=== PATIENT | female | born 1980 | race Caucasian/White ===

== ENCOUNTER 2023-12-19 04:08 | Day surgery (SDC) | payer BC ==
[2023-12-13 12:39] VITALS: BMI 32.7
[2023-12-19] MEDS ORDERED: ONDANSETRON 4 MG/2 ML VIAL IVPUSH PRN (11:23)
[2023-12-19] MEDS ORDERED: LIDOCAINE HCL 1%, 10 MG/ML (20ML VIAL) ONE ×2 (11:29→14:22)
[2023-12-19] MEDS ORDERED: ISOSULFAN BLUE 50 MG/5 ML VIAL SQ ONE (11:30)
[2023-12-19] MEDS ORDERED: LACTATED RINGERS SOLUTION 1,000 ML IV SCH (11:30)
[2023-12-19] MEDS ORDERED: ceFAZolin SODIUM 1 GM VIAL ONE (12:08)
[2023-12-19] MEDS ORDERED: ONDANSETRON 4 MG/2 ML VIAL ONE (12:08)
[2023-12-19] MEDS ORDERED: MIDAZOLAM HCL 2 MG/2 ML SINGLE DOSE VIAL ONE (12:08)
[2023-12-19] MEDS ORDERED: FENTANYL CITRATE/PF 50 MCG/ML VIAL ONE ×4 (12:08→13:27)
[2023-12-19] MEDS ORDERED: PROPOFOL 20 ML ONE (12:08)
[2023-12-19] MEDS ORDERED: ROCURONIUM BROMIDE 50 MG/5 ML SYRINGE ONE (12:08)
[2023-12-19] MEDS ORDERED: DEXAMETHASONE SOD PHOSPHATE 4 MG/1 ML VIAL ONE (12:08)
[2023-12-19] MEDS ORDERED: ACETAMINOPHEN INJECTION 100 ML IVPB ONE (12:45)
[2023-12-19] MEDS: ceFAZolin SODIUM 1 GM VIAL IVPB ONE (12:57)
[2023-12-19] MEDS ORDERED: HYDROmorphone HCl 2 MG/ML VIAL ONE (12:59)
[2023-12-19] MEDS: LIDOCAINE HCL 1%, 10 MG/ML (20ML VIAL) INF ONE (13:17)
[2023-12-19] MEDS: HEPARIN NA (PORCINE) 5,000 UNITS/ML 1ML VIAL SQ ONE (14:30)
[2023-12-19] MEDS ORDERED: KETOROLAC TROMETHAMINE 30 MG/1 ML VIAL ONE (14:41)
[2023-12-19] MEDS ORDERED: oxyCODONE HCL 5 MG TABLET ONE (17:17)
[2023-12-19] MEDS: oxyCODONE HCL 5 MG TABLET PO PRN (17:19)
[2023-12-19 17:35] VITALS: RESP 20; TEMP 97.7
[2023-12-19 18:10] VITALS: BP 105/62; PULSE 85
== END 2023-12-19 18:11 | disposition home or self-care (01) ==
LOC: JASU-SURG 04:08
PROVIDERS: ATTEND Surgery
PROC: 0JH63WZ Insertion of Totally Implantable Vascular Access Device into Chest Subcutaneous Tissue and Fascia, Percutaneous Approach (ICD-10-PCS; 2023-12-19)
PROC: 05H533Z Insertion of Infusion Device into Right Subclavian Vein, Percutaneous Approach (ICD-10-PCS; 2023-12-19)
PROC: B516ZZA Fluoroscopy of Right Subclavian Vein, Guidance (ICD-10-PCS; 2023-12-19)
PROC: 0HBU0ZZ Excision of Left Breast, Open Approach (ICD-10-PCS; principal; 2023-12-19 12:30)
PROC: 07B60ZX Excision of Left Axillary Lymphatic, Open Approach, Diagnostic (ICD-10-PCS; 2023-12-19 12:30)
PROC: C71L1ZZ Planar Nuclear Medicine Imaging of Upper Chest Lymphatics using Technetium 99m (Tc-99m) (ICD-10-PCS; 2023-12-19 12:30)
DX: C50.912 Malignant neoplasm of unspecified site of left female breast (principal); C77.3 Secondary and unspecified malignant neoplasm of axilla and upper limb lymph nodes
CPT/HCPCS: 19302; 36561; 78195; C1788; 71045-TC-FY; 76000-TC-FY; 81025; 88307-TC; 88342-TC; 94760; A9541; C1751; J0131; J1644